=== PATIENT | female | born 1930 | race Asian ===

== ENCOUNTER 2018-10-24 05:42 | Inpatient (IN) | payer MEDICARE, OTHER ==
[~2018-10-24] VITALS: Ht 154.9 cm; Wt 58.1 kg
[2018-10-24] VITALS (7 sets, daily range): BP systolic 108–141; BP diastolic 53–84
--- NOTE | 2018-10-24 05:58 | Emergency Room Report ---
History of Present Illness General Chief Complaint: Dyspnea/Respdistress Source: Patient, Family Member Present Illness HPI This is an 89-year-old female with history of high blood pressure and asthma. She presents with chief complaint of shortness of breath. Her daughter, she's been shortness breath for the last month. She already finished 3 courses of cough syrup. Had a chest x-ray 2 weeks ago and reportedly normal. Just started a Z-Ubaldo 2 days ago. She had increasing use of her inhaler. She developed acute onset of shortness of breath about 4 hours ago. Symptom worsening. Family try to drive to [facility] but had to stop because of her respiratory distress. They called 911. EMS said she was hypoxic and gave her breathing treatment area patient felt better on oxygen. No fever chills but no nausea no vomiting. Cough is nonproductive in nature. Worse with lying flat. Better with sitting up. No edema. No chest pain. Chest tightness however. Allergies: Coded Allergies: PENICILLINS (Verified Allergy, Unknown, 10/24/18) Patient History Past Medical History: see triage record, old chart reviewed, HTN, asthma Past Surgical History: other Pertinent Family History: none Social History: Denies: smoking Last Menstrual Period: UNK Now: No Immunizations: other Reviewed Nursing Documentation: PMH: Agreed; PSxH: Agreed Nursing Documentation-PMH Past Medical History: No History, Except For Hx Hypertension: Yes Hx COPD: Yes Review of Systems Eye: Denies: eye pain, blurred vision ENT: Denies: ear pain, nose congestion, throat swelling Respiratory: Reports: cough, shortness of breath Cardiovascular: Denies: chest pain, palpitations Gastrointestinal: Denies: abdominal pain, diarrhea, nausea, vomiting Musculoskeletal: Denies: back pain, joint pain Skin: Denies: rash Neurological: Denies: headache, numbness Endocrine: Denies: increased thirst, increased urine Hematologic/Lymphatic: Denies: easy bruising All Other Systems: negative except mentioned in HPI Physical Exam Vital Signs Date Time Temp Pulse Resp B/P (MAP) Pulse Ox O2 Delivery O2 Flow Rate FiO2 10/24/18 05:48 97.2 82 14 128/76 90 Room Air vitals with hypoxia Sp02 EP Interpretation: abnormal General Appearance: mild distress Head: normocephalic, atraumatic Eyes: bilateral eye PERRL, bilateral eye EOMI ENT: hearing grossly normal, normal pharynx Neck: full range of motion, supple, no meningismus, other - jVD Respiratory: chest non-tender, respiratory distress, decreased breath sounds, accessory muscle use, rales, rhonchi Cardiovascular #1: regular rate, rhythm, no murmur Gastrointestinal: normal bowel sounds, non tender, no mass, no organomegaly, no bruit, non-distended Musculoskeletal: back normal, gait/station normal, normal range of motion Psychiatric: mood/affect normal Skin: warm/dry Medical Decision Making Diagnostic Impression: Primary Impression: Respiratory distress Additional Impressions: Dyspnea Qualified Codes: R06.00 - Dyspnea, unspecified CHF exacerbation EKG Diagnostic Results Rate: normal Rhythm: NSR ST Segments: other - NSST changes Rhythm Strip Diag. Results Rhythm Strip Time: 05:58 EP Interpretation: yes Rate: 80 Rhythm: NSR, no PVC's, no ectopy Chest X-Ray Diagnostic Results Chest X-Ray Diagnostic Results : Chest X-Ray Ordered: Yes # of Views/Limited/Complete: 1 View Indication: Shortness of Breath EP Interpretation: Yes Interpretation: no consolidation, no effusion, no pneumothorax, other - CM with vasc congestion Impression: Other - chf Electronically Signed by: Suresh Cleveland MD Last Vital Signs Date Time Temp Pulse Resp B/P (MAP) Pulse Ox O2 Delivery O2 Flow Rate FiO2 10/24/18 05:48 97.2 82 14 128/76 90 Room Air Status: improved Disposition: ADMITTED INPATIENT Condition: Serious Scripts Unable to Obtain Active Prescriptions or Reported Meds Suresh Cleveland MD Oct 24, 2018 05:58
[2018-10-24 06:15] LABS: BASOPHILS % (AUTO) 0.7 % (0.0-2.0); HEMATOCRIT 37.6 % (37.0-47.0); HEMOGLOBIN 12.7 G/DL (12.0-16.0); LYMPHOCYTES % (AUTO) 39.7 % (20.0-45.0); MEAN CORPUSCULAR VOLUME 93 FL (80-99); MONOCYTES % (AUTO) 8.4 % (1.0-10.0); NEUTROPHILS % (AUTO) 45.1 % (45.0-75.0); PLATELET COUNT 198 K/UL (150-450); RED BLOOD COUNT 4.03 M/UL (4.20-5.40); RED CELL DISTRIBUTION WIDTH 10.6 % (11.6-14.8); WHITE BLOOD COUNT 7.1 K/UL (4.8-10.8)
[2018-10-24 06:24] LABS: ANION GAP 7 mmol/L (5-15); BLOOD UREA NITROGEN 13 mg/dL (7-18); CALCIUM 9.1 MG/DL (8.5-10.1); CARBON DIOXIDE 28 MMOL/L (21-32); CHLORIDE 97 MMOL/L (98-107); CREATININE 0.7 MG/DL (0.55-1.30); POTASSIUM 4.1 MMOL/L (3.5-5.1); SODIUM 132 MMOL/L (136-145)
[2018-10-24] MEDS ORDERED: Solu-MEDROL 125mg Inj IVP ONE (06:30)
[2018-10-24 06:39] LABS: ALANINE AMINOTRANSFERASE 18 U/L (12-78); ALBUMIN 3.6 G/DL (3.4-5.0); ALBUMIN/GLOBULIN RATIO 0.7 (1.0-2.7); ALKALINE PHOSPHATASE 87 U/L (46-116); ASPARTATE AMINO TRANSFERASE 18 U/L (15-37); BILIRUBIN,TOTAL 0.5 MG/DL (0.2-1.0); CKMB 1.8 NG/ML (0.0-3.6); CREATINE KINASE 102 U/L (26-308)
[2018-10-24 06:56] LABS: BILIRUBIN, URINE NEGATIVE (NEGATIVE); COLOR,URINE PALE YELLOW; GLUCOSE, URINE (UA) NEGATIVE (NEGATIVE); KETONES,URINE NEGATIVE (NEGATIVE); LEUKOCYTE ESTERASE ,URINE NEGATIVE (NEGATIVE); NITRITE,URINE NEGATIVE (NEGATIVE); PH,URINE 7 (4.5-8.0); PROTEIN,URINE 2+ (NEGATIVE); UROBILINOGEN,URINE NORMAL MG/DL (0.0-1.0)
[2018-10-24 06:58] LABS: APPEARANCE,URINE CLEAR
[2018-10-24] MEDS ORDERED: Albuterol ud Inhalation HHN ONE (07:00)
[2018-10-24] MEDS ORDERED: ADVAIR 100-501 EACH INH (07:36)
[2018-10-24] MEDS ORDERED: LEXAPRO10 MG ORAL (07:36)
[2018-10-24] MEDS ORDERED: CARVEDILOL3.125 MG ORAL (07:36)
[2018-10-24] MEDS ORDERED: GLUCOSAMINE1000 M1 PO (07:36)
[2018-10-24] MEDS ORDERED: RISPERDAL0.25 MG ORAL (07:36)
[2018-10-24] MEDS ORDERED: ALBUTEROL2.5 MG/3 M INH (07:36)
[2018-10-24] MEDS ORDERED: AMLODIPINE BES2.5 MG ORAL (07:36)
[2018-10-24] MEDS ORDERED: FLONASE ALLERG9.9 ML NS (07:36)
--- NOTE | 2018-10-24 11:32 | Diagnostic Imaging Report ---
Indication: Shortness of breath Technique: One view of the chest Comparison: None Findings: There is slight blunting of the left costophrenic sulcus, could represent a small amount of pleural fluid. The heart is borderline enlarged. No acute infiltrates. Impression: Possible small left pleural effusion. No acute process otherwise
[2018-10-24] MEDS ORDERED: Levofloxacin 500mg tab ORAL SCH (12:00)
[2018-10-24] MEDS: Solu-MEDROL 40mg Inj IVP SCH ×2 (15:35→22:06)
[2018-10-24] MEDS: Albuterol ud Inhalation HHN SCH ×2 (16:28→16:32)
[2018-10-24] MEDS: Flonase Nasal Inhaler 16gm NASAL SCH (18:38)
[2018-10-24] MEDS: Albuterol/Ipratropium 3ml neb HHN SCH ×2 (19:56→23:26)
[2018-10-24] MEDS: Advair 100/50 Inhaler - 14 dose INH SCH (23:30)
[2018-10-25] MEDS: Albuterol/Ipratropium 3ml neb HHN SCH ×5 (03:23→20:19)
[2018-10-25 04:00] VITALS: BP 105/53
--- NOTE | 2018-10-25 05:15 | History and Physical Report ---
DATE OF ADMISSION: 10/24/2018 REASON FOR ADMISSION: Shortness of breath. HISTORY OF PRESENT ILLNESS: This is an 89-year-old [place]. She has a history of hypertension and asthma. She is usually treated at [facility]. She has had progressive cough for the past month or more. Sputum production has been scant ____. Shortness of breath has increased progressively. She has finished several courses of cough syrup and antibiotics during this period. She apparently had a chest x-ray 2 to 3 weeks ago at [facility] that was reported to her as normal. She just completed a Z-Ubaldo. She has been using her nebulizer therapy more frequently, and today still became increasingly short of breath. 911 was called and the patient was brought to the emergency room where hypoxia was noted as well as bronchospasm. ALLERGIES: The patient's allergies include penicillin. MEDICATIONS: Her medications prior to admission have been reviewed and reconciled. PAST MEDICAL HISTORY: 1. Colon cancer with history of liver metastases treated and apparently in remission for over 10 years. 2. Hypertension. 3. Asthma. 4. Osteoarthritis. FAMILY HISTORY: Noncontributory. SOCIAL HISTORY: She denies smoking, alcohol, or substance abuse. REVIEW OF SYSTEMS: No fevers or chills. No loss of vision or hearing. No history of diabetes or thyroid disorder. No history of seizure or stroke. She describes herself as active, although she used to jog. She does not any more, but still is quite active at home. She has not had any leg swelling. There is no history of abnormal blood clotting. She denies history of heart disease or heart attacks. Her blood pressure control is adequate and there is no history of irregular heartbeat. She denies any kidney disease and she has not had any change in her bowel habits or signs of recurring cancer according to her history and relied by her daughter. The patient received a flu vaccination this year. PHYSICAL EXAMINATION: VITAL SIGNS: Blood pressure 128/76, pulse 82, respiratory rate 14, afebrile, and oxygen saturation on room air was 90%. GENERAL: Mild respiratory distress. Mild accessory muscle use. HEENT: Conjunctivae pink. Oropharynx clear. No thrush. No adenopathy. NECK: Supple. LUNGS: Diminished breath sounds, rhonchi, and expiratory wheezes. CARDIAC: Regular rhythm and rate. Normal S1 and S2 with a fourth heart sound. ABDOMEN: Soft and nontender. No guarding or rebound. EXTREMITIES: Good pulses. No edema. NEUROLOGIC: Nonfocal. DIAGNOSTIC DATA: EKG sinus rhythm, nonspecific ST-T wave change. White count 7.1 and hemoglobin 12.7. Troponin 0.013. Pro-natriuretic peptide 202. Glucose 119. Liver function normal. Sodium 132, potassium 4.1, bicarbonate 28, BUN 13, and creatinine 0.7. Urinalysis with 5 to 10 red cells, moderate bacteria. Chest x-ray revealed possible small left pleural effusion and no acute process. IMPRESSION: 1. Acute bronchospasm. 2. Asthma exacerbation. 3. Acute on chronic bronchitis, likely viral. 4. Distant history of colon cancer. 5. Possible pleural effusion. 6. Mild pulmonary venous congestion with acute diastolic congestive heart failure in the setting of hypertensive heart disease. PLAN: Recommend cardiac monitoring, intravenous steroids, inhaled bronchodilators. No additional diuresis. She was given a dose in the emergency room. Discontinue her low-dose beta-carolynn. Empiric antimicrobials. Pulmonary consultation. CAT scan of the chest. Further recommendations will follow. Juan Valencia M.D. DR: CAYETANO JOB#: [id number] CC:
[2018-10-25] MEDS: Solu-MEDROL 40mg Inj IVP SCH ×3 (05:25→21:12)
[2018-10-25 08:00] VITALS: BP 128/70
[2018-10-25] MEDS: Advair 100/50 Inhaler - 14 dose INH SCH ×2 (08:33→20:23)
[2018-10-25] MEDS: Flonase Nasal Inhaler 16gm NASAL SCH ×2 (08:34→18:13)
[2018-10-25] MEDS: Heparin 5000 units/ml inj SUBQ SCH (08:39)
[2018-10-25 08:48] LABS: BASOPHILS % (AUTO) 0.1 % (0.0-2.0); HEMATOCRIT 41.4 % (37.0-47.0); HEMOGLOBIN 13.8 G/DL (12.0-16.0); LYMPHOCYTES % (AUTO) 14.9 % (20.0-45.0); MEAN CORPUSCULAR VOLUME 94 FL (80-99); MONOCYTES % (AUTO) 1.8 % (1.0-10.0); NEUTROPHILS % (AUTO) 83.2 % (45.0-75.0); PLATELET COUNT 254 K/UL (150-450); RED BLOOD COUNT 4.41 M/UL (4.20-5.40); WHITE BLOOD COUNT 11.4 K/UL (4.8-10.8)
[2018-10-25 09:40] LABS: ALANINE AMINOTRANSFERASE 24 U/L (12-78); ALBUMIN/GLOBULIN RATIO 0.7 (1.0-2.7); ALKALINE PHOSPHATASE 66 U/L (46-116); ANION GAP 14 mmol/L (5-15); ASPARTATE AMINO TRANSFERASE 20 U/L (15-37); BILIRUBIN,TOTAL 0.5 MG/DL (0.2-1.0); BLOOD UREA NITROGEN 23 mg/dL (7-18); CALCIUM 9.9 MG/DL (8.5-10.1); CARBON DIOXIDE 25 MMOL/L (21-32); CHLORIDE 96 MMOL/L (98-107); CREATININE 1.2 MG/DL (0.55-1.30); POTASSIUM 3.8 MMOL/L (3.5-5.1); SODIUM 135 MMOL/L (136-145)
[2018-10-25 12:00] VITALS: BP 143/64
--- NOTE | 2018-10-25 13:53 | Consultation ---
Consult Note Assessment/Plan dict Joce Constantino MD Oct 25, 2018 13:53
--- NOTE | 2018-10-25 15:58 | Diagnostic Imaging Report ---
Clinical Indication: Cough Technique: Spiral acquisitions obtained through the chest. No IV contrast utilized, reason not stated. Multiplanar reconstructions generated. Total dose length product 692.2 mGycm. CTDIvol(s) 18.33 mGy. Dose reduction achieved using automated exposure control Comparison: none Findings:Subtle geographic areas of groundglass opacity are seen scattered throughout both lungs. No dense consolidation demonstrated. No masses, nodules, or effusions are demonstrated. There is some scarring at the left lung base. The heart is borderline enlarged. No pericardial effusion. No mediastinal or hilar mass or adenopathy. There is a 17 mm nodule coming off of the left thyroid lower pole. This is heterogeneous. There are surgical clips in the right neck. No axillary or chest wall mass or adenopathy. The bones are unremarkable. Unremarkable esophagus. The included upper abdominal anatomy demonstrates extensive pneumobilia. There are multiple endobiliary stents noted. Impression: Subtle faint geographic groundglass opacities scattered throughout both lungs. This can be a normal variant if patient was scanned in expiration or could indicate mild pulmonary edema. Less likely, given the subtlety of the finding, differential considerations considerations include infections, chronic interstitial disease, hypersensitivity pneumonitis 17 mm left lower pole thyroid nodule. Recommend further evaluation with ultrasound if clinically indicated Borderline cardiomegaly Pneumobilia, presumably due to multiple endobiliary stents The CT scanner at [facility] is accredited by the [employer] and the scans are performed using protocols designed to limit radiation exposure to as low as reasonably achievable to attain images of sufficient resolution adequate for diagnostic evaluation.
[2018-10-25 16:00] VITALS: BP 117/70
--- NOTE | 2018-10-25 18:30 | Consultation ---
DATE OF CONSULTATION: 10/25/2018 PULMONARY CONSULTATION CONSULTING PHYSICIAN: Joce Constantino M.D. ATTENDING PHYSICIAN: Juan Valencia M.D. HISTORY OF PRESENT ILLNESS: The patient is an 88-year-old woman who comes to the emergency room because of shortness of breath. She has been ill for several weeks and took antibiotics and inhalers without improvement. She was seen in the emergency department and found to have some respiratory distress, rales and rhonchi. She was treated with steroids and breathing treatments and improved. I was called to see her in consultation. PAST MEDICAL HISTORY: The patient is a poor historian. Apparently, she has a history of hypertension and asthma. She had colon cancer resected many years ago. She has never smoked. She does not use alcohol or drugs. ALLERGIES: Penicillin. MEDICATIONS: Reviewed and reconciled. PHYSICAL EXAMINATION: GENERAL: The patient is alert and responds appropriately. She is in no distress. VITAL SIGNS: Stable. HEENT: Head is normocephalic. NECK: No jugular venous distention. CHEST: Mild expiratory wheezing. CARDIAC: Rhythm is regular. ABDOMEN: Soft, nontender. EXTREMITIES: No clubbing, cyanosis, or edema. LABORATORY AND DIAGNOSTIC DATA: Chest x-ray shows a possible small left effusion. Laboratory studies reviewed. IMPRESSIONS: 1. Status asthmaticus. 2. Hypertension. 3. Past colon cancer. 4. Possible small left pleural effusion. 5. Possible diastolic heart failure. PLAN: The patient will be treated with steroids, bronchodilators, and antibiotics. I will follow her closely with you. A CT scan of the chest has been ordered. I will review results. Joce Constantino M.D. DR: Alisha JOB#: [id number] CC: Joce Constantino M.D.; Fax#: [phone] Juan Valencia M.D.
[2018-10-25 21:00] VITALS: BP 128/77
[2018-10-26] VITALS: BP 134/73
[2018-10-26] MEDS: Zolpidem 5mg tab ORAL PRN (01:00)
--- NOTE | 2018-10-26 01:00 | Progress Note ---
INTERNAL MEDICINE AND CARDIOLOGY PROGRESS NOTE DATE: 10/25/2018 SUBJECTIVE: The patient still has congestion and shortness of breath. She is wheezing. She is on antimicrobials, inhaled bronchodilators, and steroids. She received one dose of furosemide in the emergency room yesterday. PHYSICAL EXAMINATION: VITAL SIGNS: Blood pressure 117/70, pulse 106, and respirations 18. Afebrile. Room air oxygen saturation 94%. LUNGS: Mild expiratory wheezes. No accessory muscle use. No rales. HEART: Regular rhythm and rate. Normal S1, S2 with a fourth heart sound. ABDOMEN: Soft. EXTREMITIES: With trace edema. LABORATORY DATA: White count 11.4, hemoglobin 13.8. Sodium 135, potassium 3.8, bicarbonate 25, BUN 23, and creatinine 1.2. Natriuretic peptide is increased to 849. Troponin negative. IMPRESSION: 1. Chronic obstructive pulmonary disease with acute exacerbation. 2. Acute on chronic diastolic congestive heart failure. 3. Paroxysmal bronchospasm. 4. Type 2 diabetes mellitus with hyperglycemia. 5. Steroid induced leukocytosis. 6. Acute bronchitis. 7. History of colon cancer. PLAN: 1. Antimicrobials. 2. Bronchodilators. 3. Respiratory hygiene. 4. Intravenous steroids with taper as able. 5. Monitor volume status. 6. Diuresis based on clinical parameters. 7. CAT scan of the chest is pending. 8. Pulmonary consultation is requested. 9. Continue DVT prophylaxis. Juan Valencia M.D. DR: LENARD JOB#: [id number] CC:
[2018-10-26] MEDS: Albuterol/Ipratropium 3ml neb HHN SCH ×4 (01:10→19:29)
[2018-10-26] MEDS: Solu-MEDROL 40mg Inj IVP SCH ×3 (06:14→21:31)
--- NOTE | 2018-10-26 07:43 | Cardiology Report ---
APPROVED REPORT EKG Measurement Heart [id number] Normal sinus rhythm Nonspecific ST and T wave abnormality Abnormal ECG
[2018-10-26 08:00] VITALS: BP 132/75
[2018-10-26] MEDS: Advair 100/50 Inhaler - 14 dose INH SCH ×2 (08:14→21:27)
--- NOTE | 2018-10-26 08:16 | Pulmonology Progress Note ---
Assessment/Plan Assessment/Plan 1. Status asthmaticus. 2. Hypertension. 3. Past colon cancer. 4. Possible small left pleural effusion. 5. Possible diastolic heart failure. feeling better CT reviewed with minor atelectasis, thyroid nodule oral steroids and dc planning soon Subjective Constitutional: Reports: no symptoms Allergies: Coded Allergies: PENICILLINS (Verified Allergy, Unknown, 10/24/18) Objective Last 24 Hour Vital Signs Date Time Temp Pulse Resp B/P (MAP) Pulse Ox O2 Delivery O2 Flow Rate FiO2 10/26/18 08:04 102 16 96 Room Air 21 10/26/18 04:05 97 10/26/18 01:17 97 18 98 Room Air 21 10/26/18 01:06 93 18 95 Room Air 21 10/26/18 00:39 95 10/26/18 00:00 98.4 94 18 134/73 (93) 95 10/25/18 21:00 97.2 104 18 128/77 (94) 98 10/25/18 21:00 128/77 10/25/18 21:00 Room Air 10/25/18 20:21 89 18 99 Room Air 21 10/25/18 20:09 100 18 98 Room Air 21 10/25/18 20:09 100 18 94 Room Air 21 10/25/18 20:09 100 18 98 Room Air 21 10/25/18 20:01 100 18 Room Air 21 10/25/18 19:52 98 10/25/18 16:00 98.3 106 18 117/70 (86) 94 10/25/18 15:34 95 10/25/18 14:43 82 18 99 Room Air 21 10/25/18 14:43 28 10/25/18 14:35 92 18 96 Room Air 21 10/25/18 12:00 98.5 93 18 143/64 (90) 95 10/25/18 11:51 96 10/25/18 10:38 76 18 97 Room Air 21 10/25/18 10:30 28 10/25/18 10:30 76 16 94 Room Air 21 10/25/18 09:00 Room Air 10/25/18 08:34 92 128/70 10/25/18 08:34 93 18 96 Room Air 21 10/25/18 08:34 95 18 95 Room Air 21 Intake and Output 10/25/18 10/26/18 19:00 07:00 Intake Total 680 ml Balance 680 ml Intake Oral 680 ml # Voids 4 # Bowel Movements 1 HEENT: atraumatic Respiratory/Chest: decreased breath sounds Cardiovascular: normal rate Microbiology Date/Time Source Procedure Growth Status 10/24/18 06:24 Urine,Clean Catch Urine Culture - Preliminary Mixed Gram Positive Organism Resulted Laboratory Tests 10/25/18 08:30: White Blood Count 11.4#H, Red Blood Count 4.41, Hemoglobin 13.8, Hematocrit 41.4 , Mean Corpuscular Volume 94, Mean Corpuscular Hemoglobin 31.3H, Mean Corpuscular Hemoglobin Concent 33.4, Red Cell Distribution Width 11.0L, Platelet Count 254, Mean Platelet Volume 5.8L, Neutrophils (%) (Auto) 83.2H, Lymphocytes (%) (Auto) 14.9L, Monocytes (%) (Auto) 1.8, Eosinophils (%) (Auto) 0.0, Basophils (%) (Auto) 0.1, Sodium Level 135L, Potassium Level 3.8, Chloride Level 96L, Carbon Dioxide Level 25, Anion Gap 14, Blood Urea Nitrogen 23H, Creatinine 1.2#, Estimat Glomerular Filtration Rate , Glucose Level 212H, Calcium Level 9.9, Total Bilirubin 0.5, Aspartate Amino Transf (AST/SGOT) 20, Alanine Aminotransferase (ALT/SGPT) 24, Alkaline Phosphatase 66, Troponin I 0.050, Pro-B-Type Natriuretic Peptide 849H, Total Protein 10.0H, Albumin 4.0, Globulin 6.0, Albumin/Globulin Ratio 0.7L, Thyroid Stimulating Hormone (TSH) 0.362 Current Medications Medications (Trade) Dose Ordered Sig/Seema Route PRN Reason Start Time Stop Time Status Last Admin Dose Admin Acetaminophen (Tylenol) 650 mg Q4H PRN ORAL Mild Pain/Temp > 100.5 10/24/18 20:00 11/23/18 19:59 10/24/18 20:27 Albuterol/ Ipratropium (Albuterol/ Ipratropium) 3 ml Q6HRT HHN 10/25/18 14:00 10/30/18 13:59 10/26/18 08:04 Amlodipine Besylate (Norvasc) 2.5 mg Q12HR ORAL 10/24/18 21:00 11/23/18 20:59 10/25/18 08:34 Escitalopram Oxalate (Lexapro) 10 mg DAILY ORAL 10/25/18 09:00 11/24/18 08:59 10/25/18 08:34 Fluticasone Propionate (Flonase) 1 spray TWICE A DAY NASAL 10/24/18 18:00 11/23/18 17:59 10/25/18 18:13 Heparin Sodium (Porcine) (Heparin 5000 units/ml) 5,000 units DAILY SUBQ 10/25/18 09:00 11/24/18 08:59 10/25/18 08:39 Levofloxacin (Levaquin) 250 mg DAILY ORAL 10/25/18 09:00 11/01/18 08:59 10/25/18 08:34 Methylprednisolone Sodium Succinate (Solu-MEDROL) 40 mg EVERY 8 HOURS IVP 10/24/18 14:00 11/23/18 13:59 10/26/18 06:14 Pantoprazole (Protonix) 40 mg DAILY ORAL 10/24/18 17:45 11/23/18 17:44 10/25/18 08:34 Risperidone (RisperDAL) 0.25 mg QHS ORAL 10/24/18 21:00 11/23/18 20:59 10/25/18 21:11 Salmeterol Xinafoate/ Fluticasone (Advair 100/50 Diskus) 1 puffs EVERY 12 HOURS INH 10/24/18 21:00 11/23/18 20:59 10/26/18 08:14 Zolpidem Tartrate (Ambien) 5 mg HSPRN PRN ORAL Insomnia 10/26/18 01:00 11/02/18 00:59 10/26/18 01:00 Joce Constantino MD Oct 26, 2018 08:16
[2018-10-26] MEDS: Flonase Nasal Inhaler 16gm NASAL SCH ×2 (08:44→18:08)
[2018-10-26] MEDS: Heparin 5000 units/ml inj SUBQ SCH (08:49)
[2018-10-26 12:00] VITALS: BP 123/66
[2018-10-26 16:00] VITALS: BP 123/78
[2018-10-26 20:00] VITALS: BP 115/64
--- NOTE | 2018-10-26 22:15 | Consultation ---
History of Present Illness General Date patient seen: Oct 26, 2018 Chief Complaint: Dyspnea/Respdistress Reason for Consultation: abdominal pain / pneumobilia Present Illness HPI 88 year old female with multiple medical comorbidities currently admitted for medical care and management of respiratory issues was noted to be complaining of abdominal pain. states has been having chronic epigastric abdominal pain for months. dull 4/10 pain that is intermittent. during work up had a CT chest which also identified pneumobilia. surgery called to evaluate. patient seen, chart reviewed, patient examined. she is well in bed with family member resting. states pain is just a discomfort in epigastric region. history of colon cancer with liver mets s/p resection. has also had multiple prior ERCP and most recent a few months ago when biliary stent was placed. Allergies: Coded Allergies: PENICILLINS (Verified Allergy, Unknown, 10/24/18) Medication History Scheduled Amlodipine Besylate* (Amlodipine Besylate*), 2.5 MG ORAL BID, (Reported) Carvedilol* (Carvedilol*), Unknown Dose ORAL EVERY 12 HOURS, (Reported) Escitalopram Oxalate* (Lexapro*), Unknown Dose ORAL DAILY, (Reported) Fluticasone/Salmeterol (Advair 100-50 Diskus), Unknown Dose INH EVERY 12 HOURS, (Reported) Risperidone* (Risperdal*), Unknown Dose ORAL DAILY, (Reported) Scheduled PRN Albuterol Sulfate* (Albuterol Sulfate Hhn*), Unknown Dose INH Q4H PRN for Shortness of Breath, (Reported) Miscellaneous Medications Fluticasone Propionate (Flonase Allergy Relief), Unknown Dose NS, (Reported) Glucosamine Sulfate 2KCL (Glucosamine), Unknown Dose PO, (Reported) Patient History History Provided By: Patient, Family Member, Medical Record, PMD Healthcare decision maker Resuscitation status Full Code Advanced Directive on File Past Medical/Surgical History Past Medical/Surgical History: (1) Pneumobilia (2) Abdominal pain (3) Respiratory distress (4) CHF exacerbation (5) Dyspnea Review of Systems All Other Systems: negative except mentioned in HPI Physical Exam General Appearance: no apparent distress Lines, tubes and drains: peripheral HEENT: atraumatic, mucous membranes moist Neck: normal inspection Respiratory/Chest: normal breath sounds, no respiratory distress Cardiovascular/Chest: normal rate Abdomen: normal bowel sounds, soft, tender Extremities: non-tender, normal inspection Skin Exam: warm/dry Neurologic: alert, oriented x 3 Last 24 Hour Vital Signs Date Time Temp Pulse Resp B/P (MAP) Pulse Ox O2 Delivery O2 Flow Rate FiO2 10/26/18 21:30 98 20 94 Room Air 21 10/26/18 21:27 98 20 94 Room Air 21 10/26/18 21:00 Room Air 10/26/18 21:00 84 115/64 10/26/18 20:00 98.4 84 18 115/64 (81) 99 10/26/18 20:00 82 10/26/18 19:45 89 20 99 Room Air 21 10/26/18 19:30 86 18 93 Room Air 21 10/26/18 16:00 95 10/26/18 16:00 97.1 99 18 123/78 (93) 96 10/26/18 13:41 Room Air 10/26/18 13:36 Room Air 10/26/18 12:00 98.0 86 18 123/66 (85) 96 10/26/18 12:00 89 10/26/18 09:00 Room Air 10/26/18 08:44 88 132/75 10/26/18 08:17 88 20 98 Room Air 21 10/26/18 08:16 87 20 98 Room Air 21 10/26/18 08:04 102 16 96 Room Air 21 10/26/18 08:00 98.3 108 18 132/75 (94) 95 10/26/18 08:00 103 10/26/18 07:14 86 20 98 Room Air 10/26/18 04:05 97 10/26/18 01:17 97 18 98 Room Air 21 10/26/18 01:06 93 18 95 Room Air 21 10/26/18 00:39 95 10/26/18 00:00 98.4 94 18 134/73 (93) 95 Intake and Output 10/25/18 10/26/18 18:59 06:59 Intake Total 680 ml Balance 680 ml Intake Oral 680 ml # Voids 4 # Bowel Movements 1 Height (Feet): 5 Height (Inches): 1.00 Weight (Pounds): 128 Medications Current Medications Medications (Trade) Dose Ordered Sig/Seema Route PRN Reason Start Time Stop Time Status Last Admin Dose Admin Acetaminophen (Tylenol) 650 mg Q4H PRN ORAL Mild Pain/Temp > 100.5 10/24/18 20:00 11/23/18 19:59 10/24/18 20:27 Albuterol/ Ipratropium (Albuterol/ Ipratropium) 3 ml Q6HRT HHN 10/25/18 14:00 10/30/18 13:59 10/26/18 19:29 Amlodipine Besylate (Norvasc) 2.5 mg Q12HR ORAL 10/24/18 21:00 11/23/18 20:59 10/26/18 08:44 Escitalopram Oxalate (Lexapro) 10 mg DAILY ORAL 10/25/18 09:00 11/24/18 08:59 10/26/18 08:44 Fluticasone Propionate (Flonase) 1 spray TWICE A DAY NASAL 10/24/18 18:00 11/23/18 17:59 10/26/18 18:08 Heparin Sodium (Porcine) (Heparin 5000 units/ml) 5,000 units DAILY SUBQ 10/25/18 09:00 11/24/18 08:59 10/26/18 08:49 Levofloxacin (Levaquin) 250 mg DAILY ORAL 10/25/18 09:00 11/01/18 08:59 10/26/18 08:44 Methylprednisolone Sodium Succinate (Solu-MEDROL) 40 mg EVERY 8 HOURS IVP 10/24/18 14:00 11/23/18 13:59 10/26/18 21:31 Pantoprazole (Protonix) 40 mg DAILY ORAL 10/24/18 17:45 11/23/18 17:44 10/26/18 08:44 Salmeterol Xinafoate/ Fluticasone (Advair 100/50 Diskus) 1 puffs EVERY 12 HOURS INH 10/24/18 21:00 11/23/18 20:59 10/26/18 21:27 Zolpidem Tartrate (Ambien) 5 mg HSPRN PRN ORAL Insomnia 10/26/18 01:00 11/02/18 00:59 10/26/18 01:00 Assessment/Plan Problem List: (1) Abdominal pain Assessment & Plan: chronic intermittent epigastric abdominal pain. possible mets? GERD? reflux. okay for oral diet acid suppression will follow clinically. ICD Codes: R10.9 - Unspecified abdominal pain SNOMED: [id number] Qualifiers: Qualified Codes: R10.13 - Epigastric pain (2) Pneumobilia Assessment & Plan: noted on CT chest - Subtle faint geographic groundglass opacities scattered throughout both lungs. This can be a normal variant if patient was scanned in expiration or could indicate mild pulmonary edema. Less likely, given the subtlety of the finding, differential considerations considerations include infections, chronic interstitial disease, hypersensitivity pneumonitis 17 mm left lower pole thyroid nodule. Recommend further evaluation with ultrasound if clinically indicated Borderline cardiomegaly Pneumobilia, presumably due to multiple endobiliary stents hx of prior ERCP with stent likely etiology mild leukocytosis nml lft's no acute surgical intervention necessary will monitor thank you will follow with recs ICD Codes: K83.8 - Other specified diseases of biliary tract SNOMED: [id number] Lucian Ronquillo Oct 26, 2018 22:15
--- NOTE | 2018-10-26 22:30 | Progress Note ---
DATE: 10/26/2018 CARDIOLOGY AND INTERNAL MEDICINE PROGRESS NOTE SUBJECTIVE: The patient still complains of head fullness and headache. Less shortness of breath. Some abdominal bloating. No nausea, vomiting, or diarrhea. CAT scan of the chest revealed atelectasis and a thyroid nodule. OBJECTIVE: VITAL SIGNS: Blood pressure 134/73, pulse 94, respiratory rate 18, and afebrile. Monitored rhythm sinus and sinus tachycardia. NECK: Supple. LUNGS: With coarse breath sounds and rhonchi. No wheezing. CARDIAC: Regular rhythm and rate. Normal S1, S2 with a fourth heart sound. ABDOMEN: Soft. Slightly distended. EXTREMITIES: No edema. Further findings on CT scan are notable for extensive pneumobilia. IMPRESSION: 1. Status asthmaticus. 2. Acute bronchitis. 3. Hoarseness likely due to upper respiratory infection and cough. 4. Hypertensive heart disease with controlled blood pressure. 5. History of colon cancer with liver metastasis, status post extensive surgery over almost 10 years ago, now with pneumobilia. 6. Acute on chronic diastolic congestive heart failure. 7. Secondary sinus tachycardia, may be due to beta carolynn withdrawal. PLAN: 1. Antimicrobials. 2. Respiratory hygiene. 3. Bronchodilators. 4. Steroid taper. 5. Surgical evaluation of pneumobilia. 6. Titrate antihypertensive regimen. 7. Consider resuming beta-blockers if no active bronchospasm. 8. Case was discussed with the patient's son who is a physician in [place]. Juna Valencia M.D. DR: TISH JOB#: [id number] CC: POOJA
[2018-10-27] VITALS: BP 138/65
[2018-10-27] MEDS: Albuterol/Ipratropium 3ml neb HHN SCH ×4 (01:08→21:08)
[2018-10-27] MEDS: Zolpidem 5mg tab ORAL PRN ×2 (01:13→22:04)
[2018-10-27 04:00] VITALS: BP 127/57
[2018-10-27] MEDS: Solu-MEDROL 40mg Inj IVP SCH ×3 (05:40→22:06)
[2018-10-27 06:35] LABS: HEMATOCRIT 39.9 % (37.0-47.0); HEMOGLOBIN 13.5 G/DL (12.0-16.0); MEAN CORPUSCULAR VOLUME 96 FL (80-99); PLATELET COUNT 235 K/UL (150-450); RED BLOOD COUNT 4.14 M/UL (4.20-5.40); RED CELL DISTRIBUTION WIDTH 10.8 % (11.6-14.8); WHITE BLOOD COUNT 12.3 K/UL (4.8-10.8)
[2018-10-27 07:19] LABS: ALANINE AMINOTRANSFERASE 31 U/L (12-78); ALBUMIN 3.5 G/DL (3.4-5.0); ALBUMIN/GLOBULIN RATIO 0.7 (1.0-2.7); ALKALINE PHOSPHATASE 76 U/L (46-116); ANION GAP 12 mmol/L (5-15); ASPARTATE AMINO TRANSFERASE 25 U/L (15-37); BILIRUBIN,TOTAL 0.6 MG/DL (0.2-1.0); BLOOD UREA NITROGEN 17 mg/dL (7-18); CALCIUM 9.6 MG/DL (8.5-10.1); CARBON DIOXIDE 26 MMOL/L (21-32); CHLORIDE 99 MMOL/L (98-107); CREATININE 1.1 MG/DL (0.55-1.30); POTASSIUM 4.1 MMOL/L (3.5-5.1); SODIUM 136 MMOL/L (136-145)
[2018-10-27 08:16] VITALS: BP 136/75
[2018-10-27] MEDS: Heparin 5000 units/ml inj SUBQ SCH (08:18)
[2018-10-27] MEDS: Flonase Nasal Inhaler 16gm NASAL SCH ×2 (08:18→17:24)
[2018-10-27] MEDS: Advair 100/50 Inhaler - 14 dose INH SCH ×2 (09:04→21:08)
--- NOTE | 2018-10-27 09:07 | Diagnostic Imaging Report ---
Indication: Headache Technique: Continuous helical CT scanning of the head was performed utilizing automated exposure control without intravenous contrast material. Axial and coronal reconstructions were obtained. Comparison: None CT dose: Total DLP 1326.82 mGycm; CTDI vol 70.38 mGy Findings: There is no acute intracranial hemorrhage, mass effect or definite CT evidence to suggest cortical edema. There is no shift of the midline structures. Benitez-white differentiation appears preserved. The ventricles, cisterns and sulci are prominent consistent with atrophy. Periventricular hypoattenuation is seen, a nonspecific finding most commonly related to sequela of chronic microvascular ischemia. There are atherosclerotic vascular calcifications. Mastoid air cells are clear. Very mild paranasal sinus disease with opacification of some left-sided ethmoid air cells. No depressed calvarial fracture. Impression: No evidence of acute intracranial hemorrhage, mass effect or cortical edema. MRI may be obtained for more sensitive evaluation as clinically indicated. Atrophy and nonspecific periventricular hypoattenuation suggestive of chronic ischemic microvascular changes. Mild paranasal sinus disease. The CT scanner at [facility] is accredited by the [employer] and the scans are performed using protocols designed to limit radiation exposure to as low as reasonably achievable to attain images of sufficient resolution adequate for diagnostic evaluation.
[2018-10-27 12:00] VITALS: BP 133/69
--- NOTE | 2018-10-27 16:26 | Pulmonology Progress Note ---
Assessment/Plan Assessment/Plan 1. Status asthmaticus, resolving 2. Hypertension. 3. Past colon cancer. 4. Possible small left pleural effusion, not significant 5. Possible diastolic heart failure. pulm status ok oral steroids and dc planning soon Subjective Respiratory: Denies: productive cough, shortness of breath, wheezing Allergies: Coded Allergies: PENICILLINS (Verified Allergy, Unknown, 10/24/18) Objective Last 24 Hour Vital Signs Date Time Temp Pulse Resp B/P (MAP) Pulse Ox O2 Delivery O2 Flow Rate FiO2 10/27/18 13:10 90 20 98 Room Air 21 10/27/18 13:03 89 20 96 Room Air 21 10/27/18 12:00 97.0 90 16 133/69 (90) 95 10/27/18 11:37 90 10/27/18 09:12 87 20 98 Room Air 21 10/27/18 09:08 86 20 98 Room Air 21 10/27/18 09:07 84 20 97 Room Air 21 10/27/18 09:06 84 20 97 Room Air 21 10/27/18 09:00 Room Air 10/27/18 08:17 88 136/75 10/27/18 08:16 97.0 88 16 136/75 (95) 95 10/27/18 07:44 100 10/27/18 04:00 97.0 77 16 127/57 (80) 95 10/27/18 04:00 83 10/27/18 01:18 91 20 98 Room Air 21 10/27/18 01:08 89 18 96 Room Air 21 10/27/18 00:00 88 10/27/18 00:00 97.7 92 18 138/65 (89) 96 10/26/18 21:30 98 20 94 Room Air 21 10/26/18 21:27 98 20 94 Room Air 21 10/26/18 21:00 Room Air 10/26/18 21:00 84 115/64 10/26/18 20:00 98.4 84 18 115/64 (81) 99 10/26/18 20:00 82 10/26/18 19:45 89 20 99 Room Air 21 10/26/18 19:30 86 18 93 Room Air 21 Intake and Output 10/26/18 10/27/18 19:00 07:00 Intake Total 240 ml 120 ml Output Total 350 ml Balance -110 ml 120 ml Intake Oral 240 ml 120 ml Output Urine Total 350 ml # Voids 1 3 General Appearance: no acute distress HEENT: atraumatic Respiratory/Chest: lungs clear Cardiovascular: normal rate Laboratory Tests 10/27/18 06:05: White Blood Count 12.3H, Red Blood Count 4.14L, Hemoglobin 13.5, Hematocrit 39.9 , Mean Corpuscular Volume 96, Mean Corpuscular Hemoglobin 32.7H, Mean Corpuscular Hemoglobin Concent 33.9, Red Cell Distribution Width 10.8L, Platelet Count 235, Mean Platelet Volume 6.1L, Neutrophils (%) (Auto) , Lymphocytes (%) (Auto) , Monocytes (%) (Auto) , Eosinophils (%) (Auto) , Basophils (%) (Auto) , Differential Total Cells Counted 100, Neutrophils % ( Manual) 76H, Lymphocytes % (Manual) 19L, Monocytes % (Manual) 5, Eosinophils % ( Manual) 0, Basophils % (Manual) 0, Band Neutrophils 0, Nucleated Red Blood Cells , Platelet Estimate Adequate, Platelet Morphology Normal, Red Blood Cell Morphology Normal, Sodium Level 136, Potassium Level 4.1, Chloride Level 99, Carbon Dioxide Level 26, Anion Gap 12, Blood Urea Nitrogen 17, Creatinine 1.1, Estimat Glomerular Filtration Rate , Glucose Level 154H, Calcium Level 9.6, Magnesium Level 2.1, Total Bilirubin 0.6, Aspartate Amino Transf (AST/SGOT) 25, Alanine Aminotransferase (ALT/SGPT) 31, Alkaline Phosphatase 76, Pro-B-Type Natriuretic Peptide 551H, Total Protein 8.8H, Albumin 3.5, Globulin 5.3, Albumin /Globulin Ratio 0.7L Current Medications Medications (Trade) Dose Ordered Sig/Seema Route PRN Reason Start Time Stop Time Status Last Admin Dose Admin Acetaminophen (Tylenol) 650 mg Q4H PRN ORAL Mild Pain/Temp > 100.5 10/24/18 20:00 11/23/18 19:59 10/24/18 20:27 Albuterol/ Ipratropium (Albuterol/ Ipratropium) 3 ml Q6HRT HHN 10/25/18 14:00 10/30/18 13:59 10/27/18 13:03 Amlodipine Besylate (Norvasc) 2.5 mg Q12HR ORAL 10/24/18 21:00 11/23/18 20:59 10/27/18 08:17 Escitalopram Oxalate (Lexapro) 10 mg DAILY ORAL 10/25/18 09:00 11/24/18 08:59 10/27/18 08:17 Fluticasone Propionate (Flonase) 1 spray TWICE A DAY NASAL 10/24/18 18:00 11/23/18 17:59 10/27/18 08:18 Heparin Sodium (Porcine) (Heparin 5000 units/ml) 5,000 units DAILY SUBQ 10/25/18 09:00 11/24/18 08:59 10/27/18 08:18 Levofloxacin (Levaquin) 250 mg DAILY ORAL 10/25/18 09:00 11/01/18 08:59 10/27/18 08:17 Methylprednisolone Sodium Succinate (Solu-MEDROL) 40 mg EVERY 8 HOURS IVP 10/24/18 14:00 11/23/18 13:59 10/27/18 13:34 Pantoprazole (Protonix) 40 mg DAILY ORAL 10/24/18 17:45 11/23/18 17:44 10/27/18 08:17 Salmeterol Xinafoate/ Fluticasone (Advair 100/50 Diskus) 1 puffs EVERY 12 HOURS INH 10/24/18 21:00 11/23/18 20:59 10/27/18 09:04 Zolpidem Tartrate (Ambien) 5 mg HSPRN PRN ORAL Insomnia 10/26/18 01:00 11/02/18 00:59 10/27/18 01:13 Joce Constantino MD Oct 27, 2018 16:26
--- NOTE | 2018-10-27 16:35 | General Surgery Progress Note ---
General Surgery-Progress Note Subjective Additional Comments no acute events. leukocytosis Objective Last 24 Hour Vital Signs Date Time Temp Pulse Resp B/P (MAP) Pulse Ox O2 Delivery O2 Flow Rate FiO2 10/27/18 13:10 90 20 98 Room Air 21 10/27/18 13:03 89 20 96 Room Air 21 10/27/18 12:00 97.0 90 16 133/69 (90) 95 10/27/18 11:37 90 10/27/18 09:12 87 20 98 Room Air 21 10/27/18 09:08 86 20 98 Room Air 21 10/27/18 09:07 84 20 97 Room Air 21 10/27/18 09:06 84 20 97 Room Air 21 10/27/18 09:00 Room Air 10/27/18 08:17 88 136/75 10/27/18 08:16 97.0 88 16 136/75 (95) 95 10/27/18 07:44 100 10/27/18 04:00 97.0 77 16 127/57 (80) 95 10/27/18 04:00 83 10/27/18 01:18 91 20 98 Room Air 21 10/27/18 01:08 89 18 96 Room Air 21 10/27/18 00:00 88 10/27/18 00:00 97.7 92 18 138/65 (89) 96 10/26/18 21:30 98 20 94 Room Air 21 10/26/18 21:27 98 20 94 Room Air 21 10/26/18 21:00 Room Air 10/26/18 21:00 84 115/64 10/26/18 20:00 98.4 84 18 115/64 (81) 99 10/26/18 20:00 82 10/26/18 19:45 89 20 99 Room Air 21 10/26/18 19:30 86 18 93 Room Air 21 I&O Intake and Output 10/26/18 10/27/18 19:00 07:00 Intake Total 240 ml 120 ml Output Total 350 ml Balance -110 ml 120 ml Intake Oral 240 ml 120 ml Output Urine Total 350 ml # Voids 1 3 Drains: none Cardiovascular: RSR Respiratory: clear Abdomen: soft, flat, non-tender, present bowel sounds Extremities: no cyanosis Laboratory Tests Test 10/27/18 06:05 White Blood Count 12.3 K/UL (4.8-10.8) H Red Blood Count 4.14 M/UL (4.20-5.40) L Hemoglobin 13.5 G/DL (12.0-16.0) Hematocrit 39.9 % (37.0-47.0) Mean Corpuscular Volume 96 FL (80-99) Mean Corpuscular Hemoglobin 32.7 PG (27.0-31.0) H Mean Corpuscular Hemoglobin Concent 33.9 G/DL (32.0-36.0) Red Cell Distribution Width 10.8 % (11.6-14.8) L Platelet Count 235 K/UL (150-450) Mean Platelet Volume 6.1 FL (6.5-10.1) L Neutrophils (%) (Auto) % (45.0-75.0) Lymphocytes (%) (Auto) % (20.0-45.0) Monocytes (%) (Auto) % (1.0-10.0) Eosinophils (%) (Auto) % (0.0-3.0) Basophils (%) (Auto) % (0.0-2.0) Differential Total Cells Counted 100 Neutrophils % (Manual) 76 % (45-75) H Lymphocytes % (Manual) 19 % (20-45) L Monocytes % (Manual) 5 % (1-10) Eosinophils % (Manual) 0 % (0-3) Basophils % (Manual) 0 % (0-2) Band Neutrophils 0 % (0-8) Nucleated Red Blood Cells /100 WBC Platelet Estimate Adequate Platelet Morphology Normal Red Blood Cell Morphology Normal Sodium Level 136 MMOL/L (136-145) Potassium Level 4.1 MMOL/L (3.5-5.1) Chloride Level 99 MMOL/L (98-107) Carbon Dioxide Level 26 MMOL/L (21-32) Anion Gap 12 mmol/L (5-15) Blood Urea Nitrogen 17 mg/dL (7-18) Creatinine 1.1 MG/DL (0.55-1.30) Estimat Glomerular Filtration Rate mL/min (>60) Glucose Level 154 MG/DL (74-106) H Calcium Level 9.6 MG/DL (8.5-10.1) Magnesium Level 2.1 MG/DL (1.8-2.4) Total Bilirubin 0.6 MG/DL (0.2-1.0) Aspartate Amino Transf (AST/SGOT) 25 U/L (15-37) Alanine Aminotransferase (ALT/SGPT) 31 U/L (12-78) Alkaline Phosphatase 76 U/L (46-116) Pro-B-Type Natriuretic Peptide 551 pg/mL (0-125) H Total Protein 8.8 G/DL (6.4-8.2) H Albumin 3.5 G/DL (3.4-5.0) Globulin 5.3 g/dL Albumin/Globulin Ratio 0.7 (1.0-2.7) L Plan Problems: (1) Abdominal pain Assessment & Plan: chronic intermittent epigastric abdominal pain. possible mets? GERD? reflux. okay for oral diet acid suppression will follow clinically. (2) Pneumobilia Assessment & Plan: noted on CT chest - Subtle faint geographic groundglass opacities scattered throughout both lungs. This can be a normal variant if patient was scanned in expiration or could indicate mild pulmonary edema. Less likely, given the subtlety of the finding, differential considerations considerations include infections, chronic interstitial disease, hypersensitivity pneumonitis 17 mm left lower pole thyroid nodule. Recommend further evaluation with ultrasound if clinically indicated Borderline cardiomegaly Pneumobilia, presumably due to multiple endobiliary stents hx of prior ERCP with stent likely etiology mild leukocytosis nml lft's no acute surgical intervention necessary will monitor thank you will follow with Lucian Stevenson Oct 27, 2018 16:35
[2018-10-27 17:12] VITALS: BP 133/76
[2018-10-27 20:00] VITALS: BP 135/75
[2018-10-28] VITALS: BP 131/69
[2018-10-28] MEDS: Albuterol/Ipratropium 3ml neb HHN SCH ×3 (01:06→12:26)
--- NOTE | 2018-10-28 01:30 | Progress Note ---
INTERNAL MEDICINE AND CARDIOLOGY PROGRESS NOTE DATE: 10/27/2018 SUBJECTIVE: The patient feels better. Less , less shortness of breath. OBJECTIVE: VITAL SIGNS: Blood pressure 133/69, pulse 90, and respirations 16. Afebrile. Oxygen saturation 97% on room air. Blood pressure 135/75, pulse 104, and respirations 18 this evening Surgical evaluation regarding pneumobilia felt that this is chronic and requires no further intervention. CAT scan of the brain today revealed mild sinus disease and diffuse white matter disease. ASSESSMENT: 1. Chronic obstructive pulmonary disease exacerbation, improved. 2. Acute bronchospasm, resolved. 3. Encarnacion-sinus disease. 4. History of biliary stenting for colon cancer, in remission. 5. Thyroid nodule, stable and can be managed with outpatient ultrasound and needle biopsy. 6. Secondary sinus tachycardia due to beta-agonist therapy. PLAN: 1. Continue antimicrobial, steroid taper. 2. Discharge planning to follow. Juan Valencia M.D. : LENARD JOB#: [id number] CC:
[2018-10-28 04:00] VITALS: BP 138/72
[2018-10-28 08:00] VITALS: BP 135/79
[2018-10-28] MEDS ORDERED: Solu-MEDROL 40mg Inj IVP SCH (09:00)
[2018-10-28] MEDS: Flonase Nasal Inhaler 16gm NASAL SCH (09:05)
[2018-10-28] MEDS: Heparin 5000 units/ml inj SUBQ SCH (09:09)
[2018-10-28] MEDS: Advair 100/50 Inhaler - 14 dose INH SCH (09:41)
[2018-10-28 12:00] VITALS: BP 144/82
--- NOTE | 2018-10-28 12:12 | General Surgery Progress Note ---
General Surgery-Progress Note Subjective Symptoms: improved, pain absent, tolerating diet, passing flatus Objective Last 24 Hour Vital Signs Date Time Temp Pulse Resp B/P (MAP) Pulse Ox O2 Delivery O2 Flow Rate FiO2 10/28/18 09:41 97 20 98 Room Air 21 10/28/18 09:41 97 20 98 Room Air 21 10/28/18 09:04 101 135/79 10/28/18 09:04 101 135/79 10/28/18 09:00 Room Air 10/28/18 08:00 104 10/28/18 08:00 98.1 101 18 135/79 (97) 95 10/28/18 07:32 97 20 98 Room Air 21 10/28/18 07:22 98 20 96 Room Air 21 10/28/18 04:00 98.2 92 18 138/72 (94) 93 10/28/18 04:00 92 10/28/18 01:12 104 20 98 Room Air 21 10/28/18 01:06 97 20 95 Room Air 21 10/28/18 00:00 98.1 89 18 131/69 (89) 95 10/28/18 00:00 101 10/27/18 21:18 103 20 99 Room Air 21 10/27/18 21:18 102 20 98 Room Air 21 10/27/18 21:18 102 20 98 Room Air 21 10/27/18 21:08 103 20 98 Room Air 21 10/27/18 21:00 Room Air 10/27/18 20:59 104 135/75 10/27/18 20:00 98.0 104 18 135/75 (95) 96 10/27/18 20:00 111 10/27/18 17:12 97.0 103 16 133/76 (95) 95 10/27/18 15:38 96 10/27/18 13:10 90 20 98 Room Air 21 10/27/18 13:03 89 20 96 Room Air 21 I&O Intake and Output 10/27/18 10/28/18 19:00 07:00 Intake Total 600 ml 240 ml Balance 600 ml 240 ml Intake Oral 600 ml 240 ml # Voids 2 4 Drains: none Cardiovascular: RSR Respiratory: clear Abdomen: soft, flat, non-tender, present bowel sounds Extremities: no cyanosis Plan Problems: (1) Abdominal pain Assessment & Plan: chronic intermittent epigastric abdominal pain. possible mets? GERD? reflux. okay for oral diet acid suppression okay to d/c from surgical standpoint will follow clinically. (2) Pneumobilia Assessment & Plan: noted on CT chest - Subtle faint geographic groundglass opacities scattered throughout both lungs. This can be a normal variant if patient was scanned in expiration or could indicate mild pulmonary edema. Less likely, given the subtlety of the finding, differential considerations considerations include infections, chronic interstitial disease, hypersensitivity pneumonitis 17 mm left lower pole thyroid nodule. Recommend further evaluation with ultrasound if clinically indicated Borderline cardiomegaly Pneumobilia, presumably due to multiple endobiliary stents hx of prior ERCP with stent likely etiology mild leukocytosis nml lft's no acute surgical intervention necessary will monitor thank you will follow with Lucian Stevenson Oct 28, 2018 12:12
--- NOTE | 2018-10-30 01:30 | Progress Note ---
DATE: 10/28/2018 INTERNAL MEDICINE PROGRESS NOTE SUBJECTIVE: The patient is less congested. No shortness of breath. Oxygen saturation adequate on room air. Appetite is good. CAT scan of the brain, unremarkable. CAT scan of the chest, no mass, COPD noted. OBJECTIVE: VITAL SIGNS: Blood pressure 144/82, pulse 82, respiratory rate 21, oxygen saturations 95%, she is afebrile. HEENT: Mild sinus tenderness. LUNGS: Bilateral rhonchi. HEART: Regular rhythm and rate. Normal S1, S2. ABDOMEN: Soft. EXTREMITIES: Trace edema. IMPRESSION: 1. COPD exacerbation, improved. 2. Pansinusitis, chronic. 3. Hypertensive heart disease with controlled blood pressure. 4. Recovering hoarseness. 5. Resolving acute bronchitis. 6. Stable GI status with prior colon cancer and hepatobiliary surgical intervention. 7. Sinus tachycardia due to beta-carolynn withdrawal, now improved with resumption of beta-carolynn at low-dosing. 8. Acute on chronic diastolic congestive heart failure, clinically compensated. PLAN: 1. Steroid taper as an outpatient. 2. Inhaled bronchodilators. 3. Respiratory hygiene. 4. Cautious use of low-dose beta-carolynn. 5. Titrate antihypertensives as an outpatient if further necessary. 6. Discharge plan discussed with the patient and her son who is a physician out of state. The patient is understanding and agreeable. Juan Valencia M.D. DR: Antwon JOB#: [id number] CC:
--- NOTE | 2018-10-30 09:00 | Discharge Summary ---
Discharge Summary Discharge Summary _ DATE OF ADMISSION: 10/24/2018 DATE OF DISCHARGE: 10/28/2018 DISCHARGED BY: Dr. Valencia REASON FOR ADMISSION: 88 years old female with past medical history of colon cancer with liver metastasis, status post treatment , in remission for over 10 years, hypertension, asthma, osteoarthritis, usually under treatment at [facility], presented with progressive cough with scant sputum production for a month. Shortness of breath progressively increased. Patient had several courses of cough syrup and antibiotics. Patient had a chest x-ray few weeks ago at [facility] , which reported to be normal. Patient completed Z-Ubaldo. Patient was taking nebulizing treatment at home. Despite all treatment,. patient reported increased shortness of breath. Paramedics were called , and patient was brought to the emergency room for further evaluation and management. Upon evaluation,vital signs revealed evidence of hypoxia, no fever Troponin negative. EKG reveals sinus rhythm with nonspecific ST-T wave changes. No leukocytosis, hemoglobin 12.7. Pro BNP 202. LFTs stable. Urinalysis with moderate bacteria. Chest x-ray showed possible small left pleural effusion , no acute cardiopulmonary process otherwise Patient admitted with diagnoses of asthma exacerbation,acute on chronic bronchitis, acute bronchospasm, mild pulmonary venous congestion with acute diastolic congestive heart failure in the setting of hypertensive heart disease. CONSULTANTS: pulmonary Dr. Constantino surgery Dr. Ronquillo [facility] COURSE: Patient admitted to telemetry floor. [facility] closely followed and diagnosed patient with status asthmaticus. Supplemental oxygen provided to keep pulse oximetry above 90%. Pulmonary toilet provided with nebulizing therapy around the clock and as needed. Patient was taken off beta carolynn. Patient was started on intravenous steroids with gradual tapering down. Patient was started on empiric antibiotic. Antitussive provided as needed CT of the chest revealed faint ground glass opacities, scattered throughout both lungs. Possibly mild pulmonary edema versus normal variant. 17 mm left lower pole thyroid nodule. Borderline cardiomegaly. Pneumobilia presented , presumably due to multiple endobiliary stents. Patient received dose of diuresis in emergency department , no further diuresis was required. Volumes and cardiorenal parameters were closely monitored. Echocardiogram revealed preserved ejection fraction of 65%, right ventricular systolic pressure of 41 consistent with a moderate pulmonary hypertension. Blood pressure was managed with calcium channel carolynn and remained stable. DVT and GI prophylaxis provided Urinalysis revealed mixed gram-positive organism CT of the head revealed no evidence of acute intracranial bleeding or mass- effect. It did show atrophy and nonspecific periventricular hypoattenuation, suggestive of chronic ischemic microvascular changes. Mild paranasal sinus disease. Surgeon consulted for pneumobilia, noted on CT chest. Patient had a history of prior ERCP with stent , which was likely an etiology of pneumobilia. LFTs were stable. According to surgeon, no acute surgical intervention was necessary. Patient was able to tolerate diet. No nausea or vomiting. Gastric support provided. Pain management was addressed as needeed, and pain was controlled. Patient to follow-up with her outpatient primary care provider for further management as well as thyroid ultrasound for further workup of thyroid nodule. TSH within normal limits. FINAL DIAGNOSES: Status asthmaticus- resolved Asthma exacerbation Acute bronchitis Acute bronchospasm- resolved Hypertensive heart disease with controlled blood pressure Pansinusitis, chronic Acute on chronic diastolic congestive heart failure - clinically compensated Remote history of colon cancer , in remission DISCHARGE MEDICATIONS: List of medication was sent with the patient DISCHARGE INSTRUCTIONS: Patient was discharged home Follow up with primary care provider in one week. I have been assigned to dictate discharge summary for this account. I was not involved in the patient's management. Asia Telles NP Oct 30, 2018 09:00
--- NOTE | 2018-10-31 08:27 | Cardiology Report ---
APPROVED REPORT EXAM: Two-dimensional and M-mode echocardiogram with Doppler and color Doppler. INDICATION Tachycardia M-Mode DIMENSIONS IVSd0.9 (0.7-1.1cm)Left Atrium (MM)4.2 (1.6-4.0cm) LVDd4.7 (3.5-5.6cm)Aortic Root3.2 (2.0-3.7cm) PWd1.1 (0.7-1.1cm)Aortic Cusp Exc.2.0 (1.5-2.0cm) LVDs3.2 (2.5-4.0cm) PWs1.3 cm Normal left ventricular chamber size, systolic function and wall motion. Left ventricular ejection fraction estimated to be 65 %. Mild left ventricular hypertrophy by 2-D. Anterior Echo-free space, may be due to pericardial fat or effusion. All other cardiac chamber sizes are within normal limits. Focal aortic valve sclerosis with adequate cusp excursion. Thickened mitral valve leaflets with normal excursion. Mitral annulus and aortic root calcification. Pulmonic valve not well visualized. Normal tricuspid valve structure. IVC at normal size with physiologic collapse. A color flow and spectral Doppler study was performed and revealed: Trace mitral regurgitation. Mitral diastolic velocities suggest reduced left ventricular relaxation c/w mild LV diastolic dysfunction (Grade I). Mild tricuspid regurgitation. Tricuspid systolic velocities suggests peak right ventricular systolic pressure of 41 mmHg, consistent with mild pulmonary hypertension.
== END 2018-10-28 16:43 | disposition home or self-care (01) | DRG 202 ==
LOC: EDBD 05:42 → EMR 05:56 → EDBEDREQ 06:44 → 2E 06:55 → EDBEDREQ 06:59
DX: J45.902 Unspecified asthma with status asthmaticus (principal); I50.33 Acute on chronic diastolic (congestive) heart failure; I11.0 Hypertensive heart disease with heart failure; J20.9 Acute bronchitis, unspecified; Z88.0 Allergy status to penicillin; J32.4 Chronic pansinusitis; Z85.038 Personal history of other malignant neoplasm of large intestine; E11.65 Type 2 diabetes mellitus with hyperglycemia; Z85.05 Personal history of malignant neoplasm of liver; G89.29 Other chronic pain; R10.13 Epigastric pain; R00.0 Tachycardia, unspecified; T44.7X5A Adverse effect of beta-adrenoreceptor antagonists, initial encounter
CPT/HCPCS: 36415; 70450; 71045; 71250; 80053; 81003; 82550; 82553; 83735; 83880; 84443; 84484; 85007; 85025; 85610; 85730; 87086; 93005; 93306; 94640; 94664; 96374; 96375; 99285; J7620